=== PATIENT | male | born 1970 | race Caucasian/White ===

== ENCOUNTER 2019-04-13 12:20 | Emergency (ER) | payer BC, SELFPAY ==
[~2019-04-13] VITALS: Ht 188 cm; Wt 100.0 kg
[2019-04-13] MEDS ORDERED: BACT800T5 PO (14:25)
[2019-04-13 14:35] VITALS: BP 158/104
== END 2019-04-13 14:44 | disposition home or self-care (01) ==
LOC: M ED 12:20
DX: H02.846 Edema of left eye, unspecified eyelid (principal); Z72.0 Tobacco use

== ENCOUNTER 2023-02-04 08:50 | Inpatient (IN) | payer SELFPAY ==
[~2023-02-04] VITALS: Ht 188 cm; Wt 88.5 kg
[~2023-02-04 08:50] MED LIST: BACT800T5 PO
[2023-02-04] MEDS ORDERED: TUSS15SY2 PO (10:20)
[2023-02-04] MEDS ORDERED: ALBU6.7H6 INH (10:20)
[2023-02-04 11:21] LABS: BASO # 0.1 10^3/uL (0.0-0.2); BASO % 0.3 % (0.0-1.0); EOS % 0.3 % (0.0-3.0); HEMATOCRIT 44.1 % (42.0-52.0); HEMOGLOBIN 14.8 g/dl (13.5-17.5); LYMPH # 1.7 10^3/uL (1.5-5.0); LYMPH % 10.7 % (24.0-44.0); MEAN CORPUSCULAR HGB CONC 33.6 g/dl (32.0-36.5); MEAN CORPUSCULAR VOLUME 92.5 fl (80.0-96.0); MONO % 10.3 % (2.0-8.0); NEUTROPHILS # 12.2 10^3/uL (1.5-8.5); NEUTROPHILS % 77.9 % (36.0-66.0); PLATELET COUNT, AUTOMATED 323 10^3/uL (150-450); RED BLOOD COUNT 4.77 10^6/uL (4.30-6.10); WHITE BLOOD COUNT 15.6 10^3/uL (4.0-10.0)
[2023-02-04 11:39] LABS: MONO # 1.6 10^3/uL (0.0-0.8)
[2023-02-04 11:43] LABS: ALBUMIN 2.5 G/DL (3.2-5.2); ALKALINE PHOSPHATASE 114 U/L (46-116); ALT/SGPT 86 U/L (7.0-40); AST/SGOT 49 U/L (<34); BILIRUBIN,TOTAL 1.5 MG/DL (0.3-1.2); BLOOD UREA NITROGEN 9 MG/DL (9-23); CALCIUM LEVEL 8.1 MG/DL (8.5-10.1); CARBON DIOXIDE LEVEL 27 MMOL/L (20-31); CHLORIDE LEVEL 97 MMOL/L (98-107); GLOMERULAR FILTRATION RATE > 60.0 (>56); GLUCOSE, FASTING 102 MG/DL (60-100); POTASSIUM SERUM 4.4 MMOL/L (3.5-5.1); SODIUM LEVEL 132 MMOL/L (136-145); TOTAL PROTEIN 6.5 G/DL (5.7-8.2)
[2023-02-04] MEDS ORDERED: ISOVUE-370 76% 100ML VIAL As Ordered ONE (11:48)
[2023-02-04] MEDS ORDERED: PIPERACILLIN/TAZOBACTAM SOD 3.375 GM in D5W MINI-BAG PLUS 50 ML IV ONE (13:35)
[2023-02-04] MEDS ORDERED: VANCOMYCIN HCL 1,750 MG in NS 250 ML IV ONE (13:35)
[2023-02-04] MEDS ORDERED: VANCOMYCIN HCL 1,000 MG, VIAL MATE ADAPTER 1 EACH in D5W 250 ML IV ONE (14:00)
[2023-02-04] MEDS ORDERED: HOME MED LIST COMPLETE! XX SCH (14:25)
[2023-02-04] MEDS ORDERED: VANCOMYCIN HCL 750 MG, VIAL MATE ADAPTER 1 EACH in D5W 250 ML IV ONE (15:00)
[2023-02-04] MEDS ORDERED: SODIUM CHLORIDE HYPERTONIC 3% 15ML NEB SOL NEB ONE (15:20)
[2023-02-04] MEDS ORDERED: IPRATROPIUM 0.5MG/ALBUTEROL 2.5MG INH SOL UD 3ML (DUONEB) NEB PRN (16:20)
[2023-02-04 16:39] VITALS: BP 134/81
[2023-02-04] MEDS ORDERED: LORazepam 2 MG TAB PO PRN (16:50)
[2023-02-04 17:25] LABS: PARTIAL THROMBOPLASTIN TIME 29.2 SECONDS (24.8-34.2)
[2023-02-04 17:35] LABS: IMMUNOGLOBULIN G 1166 MG/DL (650-1600); IMMUNOGLOBULIN M 218.2 MG/DL (50-300)
[2023-02-04 17:38] LABS: CK-MB VALUE MASS < 1.0 NG/ML (<3.6)
[2023-02-04] MEDS: FOLIC ACID 1MG TAB PO SCH (17:38)
[2023-02-04 17:39] LABS: CPK CREATINE PHOSPHOKINASE 39 U/L (46-171); MB/CK RELATIVE INDEX 2.56 (< OR =4)
[2023-02-04] MEDS: MULTIVITAMINS/MINERALS THERAP 1 TAB PO SCH (17:39)
[2023-02-04 17:40] LABS: ALBUMIN 2.5 G/DL (3.2-5.2); ALKALINE PHOSPHATASE 119 U/L (46-116); ALT/SGPT 77 U/L (7.0-40); AST/SGOT 47 U/L (<34); BILIRUBIN,TOTAL 1.7 MG/DL (0.3-1.2); BLOOD UREA NITROGEN 8 MG/DL (9-23); CARBON DIOXIDE LEVEL 28 MMOL/L (20-31); CHLORIDE LEVEL 96 MMOL/L (98-107); CREATININE FOR GFR 0.83 MG/DL (0.70-1.30); FREE T4 0.98 NG/DL (0.89-1.76); GLOMERULAR FILTRATION RATE > 60.0 (>56); GLUCOSE, FASTING 102 MG/DL (60-100); SODIUM LEVEL 130 MMOL/L (136-145); THYROID STIMULATING HORMONE 4.736 uIU/ML (0.55-4.78); TOTAL PROTEIN 6.5 G/DL (5.7-8.2)
[2023-02-04 17:54] LABS: HEPATITIS B SURFACE ANTIGEN NEGATIVE (NEGATIVE)
[2023-02-04 18:07] LABS: HIV 1&2 SCREEN CENTAUR NEGATIVE (NEGATIVE)
[2023-02-04 18:09] LABS: OSMOLALITY SERUM 270 MOSM/KG (275-295)
[2023-02-04 18:16] LABS: HEPATITIS B CORE ANTIBODY IGM NEGATIVE (NEGATIVE)
[2023-02-04 18:34] LABS: INR 1.14; PROTHROMBIN TIME 14.8 SECONDS (12.5-14.5)
[2023-02-04] MEDS: IPRATROPIUM 0.5MG/ALBUTEROL 2.5MG INH SOL UD 3ML (DUONEB) NEB SCH (19:35)
[2023-02-04 20:40] VITALS: BP 116/67
[2023-02-04 20:55] LABS: CK-MB VALUE MASS < 1.0 NG/ML (<3.6)
[2023-02-04] MEDS: DOXYCYCLINE HYCLATE 100MG TABLET PO SCH (20:56)
[2023-02-04 20:57] LABS: CPK CREATINE PHOSPHOKINASE 22 U/L (46-171); MB/CK RELATIVE INDEX 4.54 (< OR =4)
[2023-02-04] MEDS: ENOXAPARIN 40MG/0.4ML SYRINGE (J1650 PER 10MG) SC SCH (20:57)
[2023-02-04] MEDS: THIAMINE 100 MG TAB PO SCH (20:57)
[2023-02-04] MEDS: PIPERACILLIN/TAZOBACTAM SOD 3.375 GM in D5W MINI-BAG PLUS 50 ML IV SCH (20:57)
[2023-02-04 22:00] VITALS: BP 116/67
[2023-02-04] MEDS ORDERED: VANCOMYCIN HCL 750 MG, VIAL MATE ADAPTER 1 EACH in NS 250 ML IV SCH (23:00)
[2023-02-04 23:40] VITALS: BP 100/80
[2023-02-05] MEDS: IPRATROPIUM 0.5MG/ALBUTEROL 2.5MG INH SOL UD 3ML (DUONEB) NEB SCH ×4 (01:13→20:08)
[2023-02-05] MEDS: PIPERACILLIN/TAZOBACTAM SOD 3.375 GM in D5W MINI-BAG PLUS 50 ML IV SCH ×4 (02:24→19:39)
[2023-02-05 04:56] VITALS: BP 101/56
[2023-02-05 05:45] LABS: HEMATOCRIT 39.9 % (42.0-52.0); HEMOGLOBIN 13.3 g/dl (13.5-17.5); MEAN CORPUSCULAR HEMOGLOBIN 30.2 pg (27.0-33.0); MEAN CORPUSCULAR HGB CONC 33.3 g/dl (32.0-36.5); MEAN CORPUSCULAR VOLUME 90.7 fl (80.0-96.0); PLATELET COUNT, AUTOMATED 292 10^3/uL (150-450); WHITE BLOOD COUNT 13.7 10^3/uL (4.0-10.0)
[2023-02-05 06:00] VITALS: BP 101/56
[2023-02-05 06:09] LABS: ALBUMIN 2.2 G/DL (3.2-5.2); ALKALINE PHOSPHATASE 104 U/L (46-116); ALT/SGPT 80 U/L (7.0-40); AST/SGOT 42 U/L (<34); BILIRUBIN,TOTAL 1.1 MG/DL (0.3-1.2); BLOOD UREA NITROGEN 8 MG/DL (9-23); CALCIUM LEVEL 7.7 MG/DL (8.5-10.1); CARBON DIOXIDE LEVEL 25 MMOL/L (20-31); CHLORIDE LEVEL 99 MMOL/L (98-107); CREATININE FOR GFR 0.78 MG/DL (0.70-1.30); GLOMERULAR FILTRATION RATE > 60.0 (>56); GLUCOSE, FASTING 105 MG/DL (60-100); POTASSIUM SERUM 3.8 MMOL/L (3.5-5.1); SODIUM LEVEL 132 MMOL/L (136-145); TOTAL PROTEIN 5.8 G/DL (5.7-8.2)
[2023-02-05 08:00] VITALS: BP 104/62
[2023-02-05] MEDS: MULTIVITAMINS/MINERALS THERAP 1 TAB PO SCH (08:56)
[2023-02-05] MEDS: DOXYCYCLINE HYCLATE 100MG TABLET PO SCH (08:56)
[2023-02-05] MEDS: FOLIC ACID 1MG TAB PO SCH (08:56)
[2023-02-05] MEDS: THIAMINE 100 MG TAB PO SCH ×2 (08:57→19:38)
[2023-02-05 12:00] VITALS: BP 118/73
[2023-02-05 16:00] VITALS: BP 119/73
[2023-02-05] MEDS ORDERED: SODIUM CHLORIDE HYPERTONIC 3% 15ML NEB SOL INH PRN (18:50)
[2023-02-05] MEDS: ENOXAPARIN 40MG/0.4ML SYRINGE (J1650 PER 10MG) SC SCH (19:38)
[2023-02-05 20:18] VITALS: BP 111/60
[2023-02-06 00:08] VITALS: BP 105/70
[2023-02-06] MEDS: IPRATROPIUM 0.5MG/ALBUTEROL 2.5MG INH SOL UD 3ML (DUONEB) NEB SCH ×4 (01:22→20:29)
[2023-02-06] MEDS: PIPERACILLIN/TAZOBACTAM SOD 3.375 GM in D5W MINI-BAG PLUS 50 ML IV SCH ×4 (02:05→21:12)
[2023-02-06 03:42] VITALS: BP 108/63
[2023-02-06 05:21] LABS: HEMATOCRIT 38.7 % (42.0-52.0); MEAN CORPUSCULAR HEMOGLOBIN 30.4 pg (27.0-33.0); MEAN CORPUSCULAR HGB CONC 33.6 g/dl (32.0-36.5); MEAN CORPUSCULAR VOLUME 90.6 fl (80.0-96.0); PLATELET COUNT, AUTOMATED 290 10^3/uL (150-450); RED BLOOD COUNT 4.27 10^6/uL (4.30-6.10); WHITE BLOOD COUNT 13.1 10^3/uL (4.0-10.0)
[2023-02-06 05:47] LABS: ALBUMIN 2.1 G/DL (3.2-5.2); ALKALINE PHOSPHATASE 105 U/L (46-116); ALT/SGPT 85 U/L (7.0-40); AST/SGOT 40 U/L (<34); BILIRUBIN,TOTAL 0.8 MG/DL (0.3-1.2); BLOOD UREA NITROGEN 7 MG/DL (9-23); CALCIUM LEVEL 7.8 MG/DL (8.5-10.1); CARBON DIOXIDE LEVEL 27 MMOL/L (20-31); CHLORIDE LEVEL 101 MMOL/L (98-107); CREATININE FOR GFR 0.87 MG/DL (0.70-1.30); GLOMERULAR FILTRATION RATE > 60.0 (>56); GLUCOSE, FASTING 114 MG/DL (60-100); MAGNESIUM LEVEL 2.1 MG/DL (1.8-2.4); POTASSIUM SERUM 3.9 MMOL/L (3.5-5.1); SODIUM LEVEL 135 MMOL/L (136-145); TOTAL PROTEIN 5.7 G/DL (5.7-8.2)
[2023-02-06 07:53] VITALS: BP 99/55
[2023-02-06] MEDS: MULTIVITAMINS/MINERALS THERAP 1 TAB PO SCH (08:20)
[2023-02-06] MEDS: THIAMINE 100 MG TAB PO SCH ×2 (08:20→21:11)
[2023-02-06] MEDS: FOLIC ACID 1MG TAB PO SCH (08:20)
[2023-02-06 09:50] VITALS: BP 100/50
[2023-02-06 12:00] VITALS: BP 107/64
[2023-02-06 15:08] LABS: MYCOPLASMA PNEUMONIAE IgG 1158 U/mL (0-99); MYCOPLASMA PNEUMONIAE IgM <770 U/mL (0-769)
[2023-02-06 20:00] VITALS: BP 105/62
[2023-02-06] MEDS: ENOXAPARIN 40MG/0.4ML SYRINGE (J1650 PER 10MG) SC SCH (21:11)
[2023-02-07] MEDS: IPRATROPIUM 0.5MG/ALBUTEROL 2.5MG INH SOL UD 3ML (DUONEB) NEB SCH ×4 (01:16→20:00)
[2023-02-07] MEDS: PIPERACILLIN/TAZOBACTAM SOD 3.375 GM in D5W MINI-BAG PLUS 50 ML IV SCH ×4 (03:04→20:49)
[2023-02-07 04:00] VITALS: BP 115/63
[2023-02-07 05:51] LABS: HEMOGLOBIN 13.1 g/dl (13.5-17.5); MEAN CORPUSCULAR HGB CONC 32.8 g/dl (32.0-36.5); MEAN CORPUSCULAR VOLUME 91.5 fl (80.0-96.0); PLATELET COUNT, AUTOMATED 318 10^3/uL (150-450); RED BLOOD COUNT 4.37 10^6/uL (4.30-6.10); WHITE BLOOD COUNT 15.6 10^3/uL (4.0-10.0)
[2023-02-07 07:00] LABS: ALBUMIN 2.2 G/DL (3.2-5.2); ALKALINE PHOSPHATASE 100 U/L (46-116); ALT/SGPT 93 U/L (7.0-40); AST/SGOT 47 U/L (<34); BILIRUBIN,TOTAL 0.7 MG/DL (0.3-1.2); BLOOD UREA NITROGEN 7 MG/DL (9-23); CALCIUM LEVEL 7.8 MG/DL (8.5-10.1); CARBON DIOXIDE LEVEL 25 MMOL/L (20-31); CHLORIDE LEVEL 103 MMOL/L (98-107); CREATININE FOR GFR 0.78 MG/DL (0.70-1.30); GLOMERULAR FILTRATION RATE > 60.0 (>56); GLUCOSE, FASTING 106 MG/DL (60-100); MAGNESIUM LEVEL 2.1 MG/DL (1.8-2.4); POTASSIUM SERUM 4.3 MMOL/L (3.5-5.1); SODIUM LEVEL 136 MMOL/L (136-145); TOTAL PROTEIN 5.8 G/DL (5.7-8.2)
[2023-02-07] MEDS ORDERED: ACETAMINOPHEN 500 MG TAB PO PRN (07:10)
[2023-02-07 08:04] VITALS: BP 114/65
[2023-02-07] MEDS: MULTIVITAMINS/MINERALS THERAP 1 TAB PO SCH (08:47)
[2023-02-07] MEDS: FOLIC ACID 1MG TAB PO SCH (08:47)
[2023-02-07] MEDS: THIAMINE 100 MG TAB PO SCH (08:47)
[2023-02-07 16:00] VITALS: BP 117/74
[2023-02-07 20:00] VITALS: BP 116/69
[2023-02-07] MEDS: ENOXAPARIN 40MG/0.4ML SYRINGE (J1650 PER 10MG) SC SCH (20:48)
[2023-02-08 00:07] LABS: ANCA-ATYPICAL <1:20 titer (Neg:<1:20); ANTINUCLEAR ANTIBODIES DIRECT Negative (Negative); ASPERGILLUS GALACTOMANNAN AG 0.07 Index (0.00-0.49); CRYPTOCOCCUS ANTIGEN SER Negative (Negative); CYTOPLASMIC NEUTROP AB ANCA-C <1:20 titer (Neg:<1:20); PERINUCLEAR AB ANCA-P <1:20 titer (Neg:<1:20)
[2023-02-08] MEDS: PIPERACILLIN/TAZOBACTAM SOD 3.375 GM in D5W MINI-BAG PLUS 50 ML IV SCH ×2 (02:58→09:41)
[2023-02-08 04:10] VITALS: BP 108/67
[2023-02-08 06:24] LABS: HEMATOCRIT 38.8 % (42.0-52.0); HEMOGLOBIN 13.2 g/dl (13.5-17.5); MEAN CORPUSCULAR HEMOGLOBIN 31.7 pg (27.0-33.0); PLATELET COUNT, AUTOMATED 325 10^3/uL (150-450); RED BLOOD COUNT 4.17 10^6/uL (4.30-6.10); WHITE BLOOD COUNT 11.5 10^3/uL (4.0-10.0)
[2023-02-08 07:00] LABS: ALBUMIN 2.1 G/DL (3.2-5.2); ALKALINE PHOSPHATASE 101 U/L (46-116); ALT/SGPT 95 U/L (7.0-40); AST/SGOT 49 U/L (<34); BILIRUBIN,TOTAL 0.7 MG/DL (0.3-1.2); BLOOD UREA NITROGEN 7 MG/DL (9-23); CALCIUM LEVEL 7.8 MG/DL (8.5-10.1); CARBON DIOXIDE LEVEL 25 MMOL/L (20-31); CHLORIDE LEVEL 102 MMOL/L (98-107); CREATININE FOR GFR 0.75 MG/DL (0.70-1.30); GLOMERULAR FILTRATION RATE > 60.0 (>56); GLUCOSE, FASTING 117 MG/DL (60-100); MAGNESIUM LEVEL 2.1 MG/DL (1.8-2.4); POTASSIUM SERUM 4.2 MMOL/L (3.5-5.1); SODIUM LEVEL 135 MMOL/L (136-145); TOTAL PROTEIN 5.8 G/DL (5.7-8.2)
[2023-02-08] MEDS: IPRATROPIUM 0.5MG/ALBUTEROL 2.5MG INH SOL UD 3ML (DUONEB) NEB SCH ×2 (07:24→13:33)
[2023-02-08 07:27] VITALS: BP 112/67
[2023-02-08] MEDS: FOLIC ACID 1MG TAB PO SCH (09:41)
[2023-02-08] MEDS: MULTIVITAMINS/MINERALS THERAP 1 TAB PO SCH (09:41)
[2023-02-08] MEDS ORDERED: THIA100TA PO (12:52)
[2023-02-08] MEDS ORDERED: FOLI1TAB11 PO (12:54)
[2023-02-08] MEDS ORDERED: AUGM500T34 PO (13:04)
[2023-02-08] MEDS ORDERED: AMOX875T2 PO (13:05)
[2023-02-08 16:08] LABS: MYCOPLASMA PNEUMONIAE IgG 1321 U/mL (0-99); MYCOPLASMA PNEUMONIAE IgM <770 U/mL (0-769)
[2023-02-11 09:07] LABS: CHLAMYDIA PNEUMONIAE IgG <1:16 (Neg:<1:16); CHLAMYDIA PNEUMONIAE IgM <1:10 (Neg:<1:10)
== END 2023-02-08 15:45 | disposition home or self-care (01) | DRG 137 ==
LOC: M ED 08:50 → M ED INP 15:25 → ENRESERV 15:58 → M PCU 16:23
PROVIDERS: ADMIT Internal Medicine; ATTEND Internal Medicine
DX: J85.1 Abscess of lung with pneumonia (principal); E87.1 Hypo-osmolality and hyponatremia; J84.10 Pulmonary fibrosis, unspecified; K70.30 Alcoholic cirrhosis of liver without ascites; R05.3 Chronic cough; F17.200 Nicotine dependence, unspecified, uncomplicated; Z86.16 Personal history of COVID-19; D72.829 Elevated white blood cell count, unspecified; R59.0 Localized enlarged lymph nodes; F10.10 Alcohol abuse, uncomplicated; R74.01 Elevation of levels of liver transaminase levels; R94.5 Abnormal results of liver function studies; E80.6 Other disorders of bilirubin metabolism; B95.61 Methicillin susceptible Staphylococcus aureus infection as the cause of diseases classified elsewhere; Z80.1 Family history of malignant neoplasm of trachea, bronchus and lung; Z83.3 Family history of diabetes mellitus

== ENCOUNTER → 2023-02-14 | Outpatient (CLI) | payer SELFPAY ==
[~2023-02-14] MED LIST changes: +ALBU6.7H6 INH; +AMOX875T2 PO; +AUGM500T34 PO; +FOLI1TAB11 PO; +THIA100TA PO; +TUSS15SY2 PO
== END ==
LOC: M PLAIMG 13:11
PROVIDERS: ATTEND Internal Medicine Critical Care Medicine
DX: J98.4 Other disorders of lung (principal)

== ENCOUNTER → 2023-02-21 | Outpatient (CLI) | payer SELFPAY ==
[2023-02-21 14:43] LABS: BASO # 0.1 10^3/uL (0.0-0.2); EOS # 0.7 10^3/uL (0.0-0.5); EOS % 7.4 % (0.0-3.0); HEMATOCRIT 47.7 % (42.0-52.0); HEMOGLOBIN 15.3 g/dl (13.5-17.5); LYMPH # 2.6 10^3/uL (1.5-5.0); LYMPH % 27.5 % (24.0-44.0); MEAN CORPUSCULAR HEMOGLOBIN 29.8 pg (27.0-33.0); MEAN CORPUSCULAR HGB CONC 32.1 g/dl (32.0-36.5); MONO # 0.8 10^3/uL (0.0-0.8); MONO % 8.9 % (2.0-8.0); NEUTROPHILS # 5.1 10^3/uL (1.5-8.5); NEUTROPHILS % 54.9 % (36.0-66.0); PLATELET COUNT, AUTOMATED 203 10^3/uL (150-450); RED BLOOD COUNT 5.13 10^6/uL (4.30-6.10); WHITE BLOOD COUNT 9.3 10^3/uL (4.0-10.0)
[2023-02-21 14:48] LABS: ALBUMIN 3.3 G/DL (3.2-5.2); ALKALINE PHOSPHATASE 96 U/L (46-116); ALT/SGPT 35 U/L (7.0-40); AST/SGOT 15 U/L (<34); BILIRUBIN,TOTAL 0.6 MG/DL (0.3-1.2); BLOOD UREA NITROGEN 11 MG/DL (9-23); CALCIUM LEVEL 8.9 MG/DL (8.5-10.1); CARBON DIOXIDE LEVEL 30 MMOL/L (20-31); CHLORIDE LEVEL 104 MMOL/L (98-107); GLOMERULAR FILTRATION RATE > 60.0 (>56); GLUCOSE, FASTING 84 MG/DL (60-100); POTASSIUM SERUM 4.6 MMOL/L (3.5-5.1); SODIUM LEVEL 138 MMOL/L (136-145); TOTAL PROTEIN 6.7 G/DL (5.7-8.2)
== END ==
LOC: M PLALAB 09:57
PROVIDERS: ATTEND Physician Assistant
DX: E87.1 Hypo-osmolality and hyponatremia (principal)

== ENCOUNTER → 2023-03-20 | Outpatient (CLI) | payer SELFPAY | LOC: M PLAIMG 08:55 | PROVIDERS: ATTEND Internal Medicine Critical Care Medicine | DX: J15.8 Pneumonia due to other specified bacteria (principal) ==

== ENCOUNTER 2025-10-13 14:24 | Emergency (ER) | payer OTHER, SELFPAY ==
[~2025-10-13] VITALS: Ht 188 cm; Wt 90.9 kg
[2025-10-13 15:00] LABS: BASO # 0.1 10^3/uL (0.0-0.2); BASO % 0.9 % (0.0-1.0); EOS # 0.1 10^3/uL (0.0-0.5); EOS % 0.9 % (0.0-3.0); LYMPH # 1.9 10^3/uL (1.5-5.0); LYMPH % 24.1 % (24.0-44.0); MONO # 0.8 10^3/uL (0.0-0.8); MONO % 10.1 % (2.0-8.0); NEUTROPHILS # 4.9 10^3/uL (1.5-8.5); NEUTROPHILS % 63.7 % (36.0-66.0); PLATELET COUNT, AUTOMATED 174 10^3/uL (150-450)
[2025-10-13] MEDS: METOPROLOL 5 MG/5 ML VIAL IV SCH (15:07)
[2025-10-13] MEDS: METOPROLOL TART 25 MG TABLET PO ONE (15:07)
[2025-10-13 15:19] VITALS: BP 150/98
[2025-10-13] MEDS ORDERED: HOME MED LIST COMPLETE! XX SCH (15:20)
[2025-10-13 15:26] LABS: CK-MB VALUE MASS 2.5 NG/ML (<3.6); ETHYL ALCOHOL (ETHANOL) < 0.003 % (0.000-0.010)
[2025-10-13 15:29] LABS: ALT/SGPT 29 U/L (7.0-40); AST/SGOT 23 U/L (<34); CALCIUM LEVEL 9.3 MG/DL (8.5-10.1); CARBON DIOXIDE LEVEL 26 MMOL/L (20-31); CHLORIDE LEVEL 106 MMOL/L (98-107); CREATININE FOR GFR 0.96 MG/DL (0.70-1.30); GLOMERULAR FILTRATION RATE > 90.0 (>56); MAGNESIUM LEVEL 1.9 MG/DL (1.8-2.4); POTASSIUM SERUM 4.5 MMOL/L (3.5-5.1); SODIUM LEVEL 138 MMOL/L (136-145)
[2025-10-13 15:30] LABS: THYROXINE (T4) 4.4 UG/DL (4.5-10.9)
[2025-10-13 15:33] LABS: T UPTAKE 42.1 % (22.5-37.0)
[2025-10-13 15:37] LABS: CPK CREATINE PHOSPHOKINASE 143 U/L (46-171); MB/CK RELATIVE INDEX 1.74 (< OR =4)
[2025-10-13 15:41] LABS: INR 0.98
[2025-10-13 15:49] LABS: AMPHETAMINES LEVEL URINE NEGATIVE (NEGATIVE); BARBITURATES URINE NEGATIVE (NEGATIVE); BENZODIAZEPINES URINE NEGATIVE (NEGATIVE); CANNABINOIDS URINE NEGATIVE (NEGATIVE); COCAINE METABOLITE URINE NEGATIVE (NEGATIVE); METHADONE URINE NEGATIVE (NEGATIVE); OPIATES URINE NEGATIVE (NEGATIVE); PHENCYCLIDINE URINE NEGATIVE (NEGATIVE)
[2025-10-13 16:29] LABS: CK-MB VALUE MASS 2.0 NG/ML (<3.6)
[2025-10-13 16:30] LABS: CPK CREATINE PHOSPHOKINASE 139.0 U/L (46-171); MB/CK RELATIVE INDEX 1.43 (< OR =4)
[2025-10-13] MEDS: dilTIAZem 25 MG/5 ML VIAL IV ONE (16:41)
[2025-10-13] MEDS ORDERED: CARD40TA PO (17:46)
[2025-10-13] MEDS ORDERED: ASPI81TA26 PO (18:08)
[2025-10-13 18:45] VITALS: BP 120/76; O2SAT 95
[2025-10-13] MEDS: dilTIAZem 30 MG TAB PO ONE (18:57)
[2025-10-13 19:01] VITALS: TEMP 97.5
== END 2025-10-13 19:01 | disposition home or self-care (01) ==
LOC: M ED 14:24
DX: I48.92 Unspecified atrial flutter (principal); I45.81 Long QT syndrome; F17.210 Nicotine dependence, cigarettes, uncomplicated; F10.10 Alcohol abuse, uncomplicated; Z79.1 Long term (current) use of non-steroidal anti-inflammatories (NSAID); Z79.899 Other long term (current) drug therapy
CPT/HCPCS: 71045; 80048; 80076; 80307; 82077; 82550; 82553; 83735; 84436; 84443; 84479; 84484; 85025; 85610; 87486; 87581; 87633; 87798; 93005; 93041; 94760; 96374; 96375; 99285; J0616; J1163